=== PATIENT | female | born 1950 | race African-American/Black ===

== ENCOUNTER 2021-11-22 08:51 | Emergency (ER) | payer OTHER, SELFPAY ==
--- NOTE | ~2021-11-22 | CT_ITS ---
EXAMINATION: CT ABDOMEN AND PELVIS WITH CONTRAST CLINICAL INFORMATION: 71-year-old female with mid abdominal pain 1 COMPARISON: None TECHNIQUE: Multidetector volumetric images were obtained from the superior aspect of the liver through the pubic symphysis following administration 85 mL of Omnipaque 350 intravenous contrast. Sagittal and coronal reformatted images were obtained on the technologist's workstation. Oral contrast: No This CT examination was performed using dose optimization techniques as appropriate, variously including the following: *Automated exposure control *Adjustment of mA and/or kV according to patient size (this includes techniques or standardized protocols for targeted exams where dose is matched to indication/reason for exam; i.e. extremities or head) *Use of iterative reconstruction technique DLP: 513 mGy-cm FINDINGS: LUNG BASES: There is atelectasis seen bilaterally in the lung bases right more than left and there is subpleural 3 mm nodule seen on the left on image 6 series 3. LIVER, GALLBLADDER, AND BILIARY TREE: The liver is normal in size, shape, and attenuation. No focal hepatic lesion or biliary ductal dilatation is present. The gallbladder is unremarkable with no evidence of radiopaque gallstones, gallbladder wall thickening, or obvious pericholecystic inflammatory changes. PANCREAS: There is mildly dilated pancreatic duct measured 0.4 cm in the pancreatic head and body there are no masses SPLEEN: Unremarkable. ADRENAL GLANDS: Unremarkable. KIDNEYS AND URETERS: The kidneys are normal in size, shape, and attenuation. No hydronephrosis, hydroureter, or calculi seen. No perinephric stranding. BLADDER: Unremarkable. GASTROINTESTINAL TRACT: The small and large bowel are unremarkable. The appendix is not seen. ABDOMINAL WALL: No significant hernia is appreciated. LYMPH NODES: Normal. VASCULAR: Unremarkable. PELVIC VISCERA: Uterus is not identified likely surgically absent OSSEOUS STRUCTURES: There are multilevel degenerative changes without obvious spinal canal stenosis CT/CT abdomen pelvis w con IMPRESSION: Mildly dilated pancreatic duct. No evidence of cholelithiasis or choledocholithiasis. Impression 4 abdominal pain Fleischner guidelines were followed.
[2021-11-22 09:16] VITALS: BP 125/65; BP 147/90; PULSE 66; PULSE 72; RESP 17; TEMP 36.6; O2SAT 100; BMI 26.9
--- NOTE | 2021-11-22 09:32 | ECG_ITS ---
Test Reason : abdominal pain Blood Pressure : / mmHG Vent. Rate : 065 BPM Atrial Rate : 000 BPM P-R Int : 146 ms QRS Dur : 088 ms QT Int : 478 ms P-R-T Axes : 075 044 086 degrees QTc Int : 497 ms Undetermined rhythm Nonspecific ST and T wave abnormality Prolonged QT Abnormal ECG No previous ECGs available Referred By: Marisa Maria Electronically Signed By:
--- NOTE | 2021-11-22 09:35 | ED.ABDPAIN ---
HPI - Abdominal Pain General Chief Complaint: Abdominal Pain Stated Complaint: epigastric pain x3 days Time Seen by Provider: 11/22/21 08:53 Source: patient and EMS Mode of arrival: EMS Limitations: no limitations History of Present Illness HPI narrative: 71-year-old female with a history of GERD, high cholesterol, memory impairment, COPD, anxiety, depression here with reports of epigastric pain for the last 3 days with nausea. no vomiting, diarrhea, constipation, urinary symptoms, fevers, chills, chest pain, shortness of breath. Patient tells me she is taking both Pepcid and omeprazole for GERD. She recently moved here from [place]. She has not established any providers here in [facility]. She tells me she last saw a GI doctor 1 year ago in [place] and had endoscopy which she tells me was normal. The patient is quite tearful. She tells me she moved here from [address] to move in with her son-in-law. They are planning to move to [place] to move into other family [facility] to help with her granddaughter who is having mental health problems. patient tells me she also lost her son recently in the [facility] setting for her. Multiple stressors which patient tells me are causing her some stress. She denies any suicidal ideations. She has a therapist and a psychiatrist as well Related Data Home Medications Medication Instructions Recorded Confirmed atorvastatin 80 mg tablet 1 tab PO DAILY 11/22/21 donepezil 10 mg tablet 1 tab PO DAILY 11/22/21 duloxetine 30 mg capsule,delayed 1 cap PO DAILY 11/22/21 release famotidine 20 mg tablet 1 tab PO BID 11/22/21 omeprazole 40 mg capsule,delayed 1 cap PO BID 11/22/21 release oxybutynin chloride 15 mg 1 tab PO DAILY 11/22/21 tablet,extended release 24 hr Previous Rx's Medication Instructions Recorded ondansetron 4 mg disintegrating 4 mg PO Q6H PRN #10 tab 11/22/21 tablet Allergies Allergy/AdvReac Type Severity Reaction Status Date / Time aspirin AdvReac Vomiting Verified 11/22/21 09:31 tramadol AdvReac Vomiting Verified 11/22/21 09:31 Review of Systems Review of Systems Yes all other systems are reviewed and are negative Constitutional: Reports no additional constitutional complaints, Denies body ache(s), Denies chills, Denies fever(s), Denies headache(s) and Denies weakness Eyes: Reports no additional eye complaints and Denies change in vision Reports system reviewed and no additional complaints, except as documented, Denies dizziness, Denies headache(s), Denies nasal congestion, Denies nasal discharge and Denies neck pain Cardiovascular: Reports no additional cardiovascular complaints, Denies chest pain, Denies leg edema and Denies dyspnea Respiratory: Reports no additional respiratory complaints, Denies cough and Denies dyspnea Gastrointestinal: Reports no additional gastrointestinal complaints, Reports abdominal pain, Denies diarrhea, Reports nausea and Denies vomiting Genitourinary: Reports no additional female genitourinary complaints and Denies urinary incontinence Musculoskeletal: Reports no additional musculoskeletal complaints, Denies back pain, Denies arthralgias, Denies joint swelling, Denies neck pain, Denies numbness and Denies tingling Skin/Breast: Reports system reviewed and no additional complaints, except as docu and Denies rash Reports system reviewed and no additional complaints, except as documented, Denies dizziness, Denies headache(s), Denies numbness, Denies tingling and Denies weakness [facility] Past Medical History Attestation statement: The following information was validated with the patient. Source: old records reviewed and nursing notes reviewed Social History Social History Alcohol intake: never Patient Tobacco Use Status: Former Tobacco user Smoked in Last 30 Days: Yes Use of substances other than those prescribed or required for medical reasons: Yes Substance Use Type: Marijuana Advance Directives: No Physical Exam ED Vital Signs: Vital Signs - 24 hr 11/22/21 09:16 11/22/21 09:53 11/22/21 11:25 Temperature 97.8 F Pulse Rate 66 71 Respiratory Rate 17 15 16 Blood Pressure 125/65 165/79 H Pulse Oximetry 100 100 11/22/21 15:17 Temperature 98.2 F Pulse Rate 69 Respiratory Rate 17 Blood Pressure 138/72 Pulse Oximetry 99 BMI result Body Mass Index 26.9 Const General: cooperative, healthy appearing, comfortable and no acute distress Orientation/consciousness: patient oriented x3 Limitations: no limitations HENMT Head: Yes normal to inspection Ears: hearing grossly normal bilaterally General nose exam: Normal external nose present Face and sinus: Yes normal facial exam Mouth: Normal oral and palatal mucosa present Teeth and gingiva: dentition normal Throat: Yes posterior oropharynx normal, Yes tonsils normal and Yes uvula midline Eyes General: appearance normal, both eyes and all related structures Pupils: Equal, round and reactive pupils present Neck Neck: Yes normal visual inspection, Yes full ROM, Yes no lymphadenopathy and Yes no meningeal signs Chest Chest palpation & inspection: normal inspection of the chest Resp Effort & Inspection: normal respiratory effort Auscultation: clear to auscultation bilaterally Cardio Rate: regular rate Rhythm: regular rhythm Peripheral pulses: Peripheral pulses 2+ throughout GI Inspection: Yes normal to inspection Palpation (GI): Soft to palpation and Tenderness to palpation present (GI) (epigastric-TTP) General: Yes no CVA tenderness Back/Spine/Pelvis Back: no CVA tenderness Skin General skin exam: no rashes or lesions noted Neuro General: patient oriented x3, moves all extremities, no meningeal signs and Unable to assess gait Cranial nerves: Yes CN's II-XII intact bilaterally, Yes Equal, round and reactive pupils present, Yes Bilaterally intact EOM present, Yes Nystagmus not present, Yes Normal facial strength present and Yes Midline tongue present Cognition (Neuro): normal cognition Gait exam (Neuro): Unable to assess gait Motor exam (neuro): 5/5 motor strength present throughout Sensory Exam: Normal double simultaneous stimulation for sensation Extrem General: Yes normal to inspection Course Course Course Narrative: 71-year-old female here with reports of epigastric pain and nausea for the last 3 days. On exam the patient has epigastric tenderness to palpate. No rebound or guarding. She is quite tearful on exam reports multiple life stressors. She has underlying history of gastric reflux and has been seen by GI in [place]. She last endoscopy 1 year ago. She is on omeprazole and famotidine with continued symptoms. Will check labs, UA, EKG did age. Will provide analgesia, antiemetic and PPI. Re-assess Reevaluation(s) Reevaluation #1: Patient reports continued with tenderness mid abdomen-no rebound or guarding. Nausea improved. will check CT A/P Time: 11:15 Reevaluation #2: CT shows a mildly dilated pancreatic duct. There is no evidence of gallstones. The LFTs are normal. Lipase is normal. Likely incidental finding. Patient can follow up outpatient with her primary care doctor in regards to this. will involve care team due to multiple stressors no reports of depression. No suicidal thoughts. Time: 13:23 Reevaluation #3: patient was seen by care team (gilda). no suicidal thoughts. she has an outpatient therapist and psychiatrist. Plan for additional outpatient resources. Patient tolerating satinder rafael with no additional vomiting episodes. Likely gastritis versus GERD. patient has omeprazole and Pepcid at home. Will give her sublingual Zofran as needed Time: 14:00 MDM - Abdominal Pain MDM Narrative Medical decision making narrative: gastritis, GERD, ACS Medical Records Attestation: I reviewed the patient's medical records. Lab Data Attestation: I reviewed the patient's lab results. Result diagrams: 11/22/21 10:22 11/22/21 10: Labs: Lab Results 11/22/21 11/22/21 11/22/21 Range/Units 10:22 10:22 10:22 WBC 6.7 (4.8-10.8) X10*3/uL RBC 4.90 (4.20-5.50) X10*6/uL Hgb 13.0 (12.0-16.0) g/dl Hct 40.2 (37.0-47.0) % MCV 82.0 (80.0-98.0) fL MCH 26.5 L (27.0-33.0) pg MCHC 32.3 (31.0-35.0) g/dl RDW 13.9 (11.0-16.0) % Plt Count 393 (160-400) X10*3/uL MPV 10.6 (9.4-12.3) fL Immature Gran % (Auto) 0.1 (0.0-0.4) % Neut % (Auto) 57.8 (45-73) % Lymph % (Auto) 30.7 (20-40) % [place] % (Auto) 9.2 (2-11) % Eos % (Auto) 1.2 (0-4) % Baso % (Auto) 1.0 (0-2) % Lymph # (Auto) 2.1 (1.2-4.9) X10*3/uL [place] # (Auto) 0.6 (0.1-1.2) X10*3/uL Eos # (Auto) 0.1 (0.0-0.4) X10*3/uL Baso # (Auto) 0.1 (0.0-0.2) X10*3/uL Abs Immat Gran (auto) 0.01 (0.00-0.03) X10*3/uL Absolute Neuts (auto) 3.9 (2.0-8.3) x10*3/uL Absolute Nucleated RBC 0.000 (0.0-0.012) X10*3/uL Nucleated RBC % (auto) 0.0 (0.0-0.2) /100WBC Sodium 142 (135-145) mmol/L Potassium 4.3 (3.3-5.1) mmol/L Chloride 113 H (96-108) mmol/L Carbon Dioxide 19 L (22-29) mmol/L Anion Gap 14 (12-20) BUN 10 (9-16) mg/dL Creatinine 0.79 (0.5-1.4) mg/dL Estim Creat Clear Calc 50.8 Estimated GFR > 60 Random Glucose 94 (60-115) mg/dL Calcium 9.2 (8.4-10.2) mg/dL Magnesium 1.9 (1.6-2.6) mg/dL Total Bilirubin 0.4 (0.0-1.0) mg/dL Direct Bilirubin 0.2 (0.0-0.5) mg/dL AST 14 (5-31) U/L ALT 8 (0-31) U/L Alkaline Phosphatase 127 H (39-117) U/L Troponin I High Sens 4.3 (<3.5-17.0) ng/L Total Protein 6.6 (6.5-8.0) g/dL Albumin 3.7 (3.5-5.0) g/dL Lipase 13 (8-78) U/L Urine Color Urine Appearance Urine pH (5.0-8.0) Ur Specific [place] (1.005-1.025) Urine Protein (NEG-TRACE) MG/DL Urine Glucose (UA) (NEG) MG/DL Urine Ketones (NEG) MG/DL Urine Blood (NEG) Urine Nitrite (NEG) Ur Leukocyte Esterase (NEG) COVID-19 (TOR[facility]Y) (Negative) COVID-19 Clin Com 11/22/21 11/22/21 Range/Units 10:22 10:22 WBC (4.8-10.8) X10*3/uL RBC (4.20-5.50) X10*6/uL Hgb (12.0-16.0) g/dl Hct (37.0-47.0) % MCV (80.0-98.0) fL MCH (27.0-33.0) pg MCHC (31.0-35.0) g/dl RDW (11.0-16.0) % Plt Count (160-400) X10*3/uL MPV (9.4-12.3) fL Immature Gran % (Auto) (0.0-0.4) % Neut % (Auto) (45-73) % Lymph % (Auto) (20-40) % [place] % (Auto) (2-11) % Eos % (Auto) (0-4) % Baso % (Auto) (0-2) % Lymph # (Auto) (1.2-4.9) X10*3/uL [place] # (Auto) (0.1-1.2) X10*3/uL Eos # (Auto) (0.0-0.4) X10*3/uL Baso # (Auto) (0.0-0.2) X10*3/uL Abs Immat Gran (auto) (0.00-0.03) X10*3/uL Absolute Neuts (auto) (2.0-8.3) x10*3/uL Absolute Nucleated RBC (0.0-0.012) X10*3/uL Nucleated RBC % (auto) (0.0-0.2) /100WBC Sodium (135-145) mmol/L Potassium (3.3-5.1) mmol/L Chloride (96-108) mmol/L Carbon Dioxide (22-29) mmol/L Anion Gap (12-20) BUN (9-16) mg/dL Creatinine (0.5-1.4) mg/dL Estim Creat Clear Calc Estimated GFR Random Glucose (60-115) mg/dL Calcium (8.4-10.2) mg/dL Magnesium (1.6-2.6) mg/dL Total Bilirubin (0.0-1.0) mg/dL Direct Bilirubin (0.0-0.5) mg/dL AST (5-31) U/L ALT (0-31) U/L Alkaline Phosphatase (39-117) U/L Troponin I High Sens (<3.5-17.0) ng/L Total Protein (6.5-8.0) g/dL Albumin (3.5-5.0) g/dL Lipase (8-78) U/L Urine Color STRAW Urine Appearance CLEAR Urine pH 8.0 (5.0-8.0) Ur Specific [place] 1.010 (1.005-1.025) Urine Protein NEG (NEG-TRACE) MG/DL Urine Glucose (UA) NEG (NEG) MG/DL Urine Ketones NEG (NEG) MG/DL Urine Blood NEG (NEG) Urine Nitrite NEG (NEG) Ur Leukocyte Esterase NEG (NEG) COVID-19 (TORREY) Negative (Negative) COVID-19 Clin Com See Note Imaging Data CT scan - abdomen: Attestation: I personally reviewed and interpreted this imaging study as follows: Radiologist's impression: FINDINGS: LUNG BASES: There is atelectasis seen bilaterally in the lung bases right more than left and there is subpleural 3 mm nodule seen on the left on image 6 series 3.? LIVER, GALLBLADDER, AND BILIARY TREE: The liver is normal in size, shape, and attenuation. No focal hepatic lesion or biliary ductal dilatation is present. The gallbladder is unremarkable with no evidence of radiopaque gallstones, gallbladder wall thickening, or obvious pericholecystic inflammatory changes.? PANCREAS: There is mildly dilated pancreatic duct measured 0.4 cm in the pancreatic head and body there are no masses? SPLEEN: Unremarkable.? ADRENAL GLANDS: Unremarkable.? KIDNEYS AND URETERS: The kidneys are normal in size, shape, and attenuation. No hydronephrosis, hydroureter, or calculi seen. No perinephric stranding. ? BLADDER: Unremarkable.? GASTROINTESTINAL TRACT: The small and large bowel are unremarkable. The appendix is not seen.? ABDOMINAL WALL: No significant hernia is appreciated.? LYMPH NODES: Normal. VASCULAR: Unremarkable. PELVIC VISCERA: Uterus is not identified likely surgically absent? OSSEOUS STRUCTURES: There are multilevel degenerative changes without obvious spinal canal stenosis? CT/CT abdomen pelvis w con IMPRESSION: Mildly dilated pancreatic duct. No evidence of cholelithiasis or choledocholithiasis. ? Impression 4 abdominal pain? ? Fleischner guidelines were followed. ECG Data Attestation: I personally reviewed and interpreted this ECG as follows: ECG interpretation date: 11/22/21 ECG interpretation time: 09:56 Interpretation: sinus bradycardia with rate 55, normal MD, normal QRS, normal QT Discharge Plan Discharge Clinical Impression: GERD (gastroesophageal reflux disease), Depression Patient Disposition: Home, Self-Care Instructions: Depression (DC), Gastroesophageal Reflux Disease (DC) Additional Instructions: very bland diet then advance diet as tolerated you were given referrals for outpatient grief counselor your CT scan shows a dilated pancreatic duct. You can follow-up with your primary care doctor in regards to this. Prescriptions: New ondansetron 4 mg tablet,disintegrating 4 mg PO Q6H PRN (Reason: nausea and vomiting) Qty: 10 0RF No Action atorvastatin 80 mg tablet 1 tab PO DAILY 0RF oxybutynin chloride 15 mg tablet extended release 24 hr 1 tab PO DAILY 0RF donepezil 10 mg tablet 1 tab PO DAILY 0RF omeprazole 40 mg capsule,delayed release(DR/EC) 1 cap PO BID 0RF famotidine 20 mg tablet 1 tab PO BID 0RF duloxetine 30 mg capsule,delayed release(DR/EC) 1 cap PO DAILY 0RF Referrals: Physician,Unknown J [Primary Care Provider] -
[2021-11-22 09:53] VITALS: RESP 15
[2021-11-22] MEDS: 0.9 % Sodium Chloride 1,000 ML 999 ML IV (09:53)
[2021-11-22] MEDS: Famotidine/PF 20 MG/2 ML VIAL IVPUSH (09:53)
[2021-11-22] MEDS: ondansetron HCL 4 MG/2 ML VIAL IVPUSH (09:53)
[2021-11-22] MEDS: Morphine Sulfate 4 MG/ML CARTRIDGE IVPUSH (09:53)
[2021-11-22 10:30] LABS: MANUAL DIFF FLAG NO
[2021-11-22 10:36] LABS: Basophils Absolute Auto 0.1 X10*3/uL (0.0-0.2); Eosinophils Absolute Auto 0.1 X10*3/uL (0.0-0.4); Eosinophils Percent Auto 1.2 % (0-4); Hematocrit 40.2 % (37.0-47.0); Imm Gran Abs Auto 0.01 X10*3/uL (0.00-0.03); Imm Gran Pct Auto 0.1 % (0.0-0.4); Lymphocytes Absolute Auto 2.1 X10*3/uL (1.2-4.9); Lymphocytes Percent Auto 30.7 % (20-40); Mean Corpuscular HGB Conc 32.3 g/dl (31.0-35.0); Mean Corpuscular Hemoglobin 26.5 pg (27.0-33.0); Mean Platelet Volume 10.6 fL (9.4-12.3); Monocytes Absolute Auto 0.6 X10*3/uL (0.1-1.2); Monocytes Percent Auto 9.2 % (2-11); Neutrophils Absolute Auto 3.9 x10*3/uL (2.0-8.3); Neutrophils Percent Auto 57.8 % (45-73); Platelet Count 393 X10*3/uL (160-400); Red Cell Distribution Width 13.9 % (11.0-16.0); White Blood Count 6.7 X10*3/uL (4.8-10.8)
[2021-11-22 10:38] LABS: Appearance Urine CLEAR; Color Urine STRAW; Glucose Urine UA NEG (NEG); Leukocyte Esterase Urine NEG (NEG); Nitrite Urine NEG (NEG); Urine Blood NEG (NEG); Urine Ketones NEG (NEG); Urine Protein NEG (NEG-TRACE)
[2021-11-22 10:56] LABS: Alanine Aminotransferase 8 U/L (0-31); Albumin Level 3.7 g/dL (3.5-5.0); Alkaline Phosphatase 127 U/L (39-117); Anion Gap 14 (12-20); Aspartate Amino Transferase 14 U/L (5-31); Bilirubin Direct 0.2 mg/dL (0.0-0.5); Bilirubin Total 0.4 mg/dL (0.0-1.0); Blood Urea Nitrogen 10 mg/dL (9-16); Calcium 9.2 mg/dL (8.4-10.2); Carbon Dioxide 19 mmol/L (22-29); Chloride 113 mmol/L (96-108); Creatinine Clr Calc Pharmacy 50.8; Estimated Glomerular Filt Rate > 60; Glucose Random 94 mg/dL (60-115); Lipase 13 U/L (8-78); Magnesium 1.9 mg/dL (1.6-2.6); Potassium 4.3 mmol/L (3.3-5.1); Sodium 142 mmol/L (135-145); Total Protein 6.6 g/dL (6.5-8.0)
[2021-11-22 11:02] LABS: COVID-19 Test Negative (Negative); Troponin-I High Sensitivity 4.3 ng/L (<3.5-17.0)
[2021-11-22 11:25] VITALS: BP 165/79; PULSE 71; RESP 16; O2SAT 100
[2021-11-22] MEDS: iohexoL 350 MG/ML 100 ML INFUS..BTL IV (11:56)
--- NOTE | 2021-11-22 13:00 | PC.NURSE ---
Seen by CARE team
[2021-11-22] MEDS: Magnesium Hydrox/Alum Hydrox 30 ML ORAL.SUSP PO (13:31)
[2021-11-22] MEDS: Lidocaine HCl Viscous 2 % 15 ML SOLUTION MUCOUS MEM (13:31)
--- NOTE | 2021-11-22 14:12 | MHC.CARE ---
CARE Team meets with pt at the request of the ED provider for a consult.? Pt reports that she lives with her son in law.? She is from [place], but was here as her son ( to her son in law) was sick with cancer.? Her son recently approximately a year ago.? She has since been experiencing depression and recently bouts of crying, prior to her son?s passing, she reports never experiencing depression. She reports that she has supports in the form of a therapist and psychiatrist.? She stated that her therapy appointments have been helpful.? Pt will be returning home to [place] in March and will remain in this area until then. CARE Team will refer pt to Zelda Jameson who specializes in the Geriatric population for loss and grieving counseling and groups.
[2021-11-22 15:17] VITALS: BP 138/72; PULSE 69; RESP 17; TEMP 36.8; O2SAT 99
[2021-11-22 16:29] VITALS: BP 115/68; PULSE 53; RESP 18; O2SAT 100
== END 2021-11-22 16:35 | disposition home or self-care (01) ==
PROVIDERS: Nurse Practitioner Family; Emergency Provider Emergency Medicine
DX: K21.9 Gastro-esophageal reflux disease without esophagitis (principal); R10.13 Epigastric pain; J44.9 Chronic obstructive pulmonary disease, unspecified; F33.1 Major depressive disorder, recurrent, moderate; Z20.822 Contact with and (suspected) exposure to COVID-19; Z87.891 Personal history of nicotine dependence; Z79.899 Other long term (current) drug therapy
CPT/HCPCS: 36415; 74177; 80048; 80076; 81003; 83690; 83735; 84484; 85025; 87635; 93005; 96361; 96374; 96375; 99284; J2270; J2405; Q9967

== ENCOUNTER 2021-12-08 18:39 | Emergency (ER) | payer OTHER, SELFPAY ==
[2021-12-08] VITALS (9 sets, daily range): BP systolic 123–234; BP diastolic 58–107; PULSE 76–118; RESP 20–33; O2SAT 95–99; BMI 25.4
--- NOTE | ~2021-12-08 | CT_ITS ---
EXAMINATION: CT HEAD WITHOUT CONTRAST (STROKE PROTOCOL) CLINICAL INFORMATION: Stroke protocol. Right arm weak COMPARISON: None TECHNIQUE: Contiguous axial imaging was performed from the skull base to vertex without intravenous administration of contrast. This CT examination was performed using dose optimization techniques as appropriate, variously including the following: *Automated exposure control *Adjustment of mA and/or kV according to patient size (this includes techniques or standardized protocols for targeted exams where dose is matched to indication/reason for exam; i.e. extremities or head) *Use of iterative reconstruction technique DLP: 623 mGy-cm FINDINGS: There is hyperdense hematoma seen in the high left frontoparietal white matter. This measures up to 2.3 cm in maximal diameter with associated surrounding edema. I do not appreciate any significant shift of midline structures. There is extensive periventricular white matter hypodensities bilaterally suggesting a component of likely chronic periventricular white matter changes, possibly age-related as well. The ventricles are normal in size. There is no hydrocephalus, or midline shift effect. There is no acute infarct or mass lesion. Chronic encephalomalacia in the right basal ganglia suggesting a small chronic right basal ganglia infarct noted as well The calvarium appears intact. There is no pneumocephalus or orbital emphysema. The visualized sinuses and middle ears and mastoid air cells show no significant mucosal thickening. There are no air-fluid levels. CT/CT head for stroke IMPRESSION: Hyperdense hematoma in the high left frontoparietal white matter with associated surrounding edema. I do not appreciate any significant shift of midline structures at this time. No hydrocephalus. Periventricular white matter changes are seen likely age-related. Probable chronic right basal ganglia infarct noted as well. This critical result was discussed with Dr. Gamble at 12/08/2021 7:08 PM and it was ascertained that the content and urgency of the report was understood at the time of direct communication.
--- NOTE | ~2021-12-08 | XR_ITS ---
EXAMINATION: PORTABLE CHEST 1 VIEW CLINICAL INFORMATION: cva . COMPARISON: No recent pertinent prior studies are available for comparison. TECHNIQUE: Portable frontal view of the chest was obtained. FINDINGS: The lungs are well expanded. Mild chronic appearing reticular markings seen but no superimposed focal infiltrate, effusion, edema, or pneumothorax. Cardiac and mediastinal silhouettes are within normal limits for size with vascular calcification in aorta. Degenerative changes in the spine and shoulders. No acute bony abnormality seen. XR/XR chest 1V IMPRESSION: Chronic appearing changes but no acute airspace disease
--- NOTE | 2021-12-08 18:42 | ECG_ITS ---
Test Reason : STROKE ALERT Blood Pressure : / mmHG Vent. Rate : 068 BPM Atrial Rate : 068 BPM P-R Int : 136 ms QRS Dur : 074 ms QT Int : 440 ms P-R-T Axes : 077 054 081 degrees QTc Int : 467 ms Normal sinus rhythm Nonspecific ST abnormality Abnormal ECG When compared with ECG of 22-NOV-2021 09:56, No significant change was found Referred By: Drew Gamble Electronically Signed By:Guille Cazares
[2021-12-08 19:03] LABS: Prothrombin Time Whole Bld POC 12.6 sec (11.1-13.5); ~PT, ~INR - Anti Coag Clinic 1.1 (0.9-1.1)
[2021-12-08 19:14] LABS: Glucose, Whole Blood 92 mg/dL (60-115)
[2021-12-08 19:16] LABS: MANUAL DIFF FLAG NO
--- NOTE | 2021-12-08 19:16 | PC.NURSE ---
call out to [facility] transfer [phone] @[phone] spoke to cheryl regarding transfer
[2021-12-08 19:18] LABS: Basophils Percent Auto 0.5 % (0-2); Eosinophils Absolute Auto 0.1 X10*3/uL (0.0-0.4); Eosinophils Percent Auto 1.3 % (0-4); Hematocrit 41.4 % (37.0-47.0); Hemoglobin 13.6 g/dl (12.0-16.0); Imm Gran Abs Auto 0.03 X10*3/uL (0.00-0.03); Imm Gran Pct Auto 0.4 % (0.0-0.4); Lymphocytes Absolute Auto 3.1 X10*3/uL (1.2-4.9); Lymphocytes Percent Auto 35.9 % (20-40); Mean Corpuscular HGB Conc 32.9 g/dl (31.0-35.0); Mean Corpuscular Hemoglobin 26.4 pg (27.0-33.0); Mean Corpuscular Volume 80.4 fL (80.0-98.0); Mean Platelet Volume 10.8 fL (9.4-12.3); Monocytes Absolute Auto 0.7 X10*3/uL (0.1-1.2); Monocytes Percent Auto 8.5 % (2-11); Neutrophils Absolute Auto 4.6 x10*3/uL (2.0-8.3); Neutrophils Percent Auto 53.4 % (45-73); Platelet Count 460 X10*3/uL (160-400); Red Blood Count 5.15 X10*6/uL (4.20-5.50); Red Cell Distribution Width 14.2 % (11.0-16.0); White Blood Count 8.6 X10*3/uL (4.8-10.8)
--- NOTE | 2021-12-08 19:18 | ED_ITS ---
HPI - Neuro Symptoms/Deficit General Chief Complaint: Stroke Stated Complaint: stroke Time Seen by Provider: 12/08/21 18:42 Source: patient and EMS Limitations: no limitations History of Present Illness HPI Narrative: This is a 71-year-old female who had sudden onset of a headache and weakness in her right arm and right leg, to the extent that she could not move her right arm and right leg. She called EMS and they noted that she was hypertensive, did clearly have weakness of her right arm right leg. Patient complains of moderate headache. She denies any history of hypertension. She denies any facial weakness or problems swallowing, speaking. She denies numbness to her face, arms or legs. She denies any chest pain or shortness of breath. Related Data Home Medications Medication Instructions Recorded Confirmed atorvastatin 80 mg tablet 1 tab PO DAILY 11/22/21 donepezil 10 mg tablet 1 tab PO DAILY 11/22/21 duloxetine 30 mg capsule,delayed 1 cap PO DAILY 11/22/21 release famotidine 20 mg tablet 1 tab PO BID 11/22/21 omeprazole 40 mg capsule,delayed 1 cap PO BID 11/22/21 release oxybutynin chloride 15 mg 1 tab PO DAILY 11/22/21 tablet,extended release 24 hr Previous Rx's Medication Instructions Recorded ondansetron 4 mg disintegrating 4 mg PO Q6H PRN #10 tab 11/22/21 tablet Allergies Allergy/AdvReac Type Severity Reaction Status Date / Time aspirin AdvReac Vomiting Verified 11/22/21 09:31 tramadol AdvReac Vomiting Verified 11/22/21 09:31 Review of Systems Constitutional: Constitutional: Reports no additional constitutional complaints and Reports headache(s) Eyes: Eyes: Reports no additional eye complaints ENT: Reports system reviewed and no additional complaints, except as documented and Reports headache(s) Cardiovascular: Cardiovascular: Reports no additional cardiovascular complaints Respiratory: Respiratory: Reports no additional respiratory complaints Gastrointestinal: Gastrointestinal: Reports nausea Musculoskeletal: Musculoskeletal: Reports no additional musculoskeletal complaints Neurologic: Reports headache(s) and Reports focal weakness PMFSH Social History Social History Alcohol intake: never Patient Tobacco Use Status: Former Tobacco user Substance Use Type: Marijuana Advance Directives: No Advance Directives Information Provided: No Physical Exam Vital Signs: Vital Signs: Last Vital Signs Pulse 85 12/08/21 20:55 Resp 23 H 12/08/21 20:55 BP 123/61 12/08/21 20:55 Pulse Ox 97 12/08/21 20:55 BMI result Body Mass Index 25.4 Const: Other: Patient initially speaking normally,, somewhat animated/anxious General: cooperative Orientation/consciousness: oriented to person and patient oriented x3 HEENT: Head: Yes normal to inspection General nose exam: Normal external nose present Mouth: Normal oral and palatal mucosa present Eyes: General: appearance normal, both eyes and all related structures Pupils: Equal, round and reactive pupils present Resp: Effort & Inspection: normal respiratory effort Auscultation: clear to auscultation bilaterally Cardio: Rate: regular rate Rhythm: regular rhythm Heart sounds: S1 normal heart sound present, S2 normal heart sound present, no gallops, no murmurs and no rubs GI: Palpation (GI): Soft to palpation and nontender Skin: Other: Diaphoretic Neuro: Other: Flaccid paralysis to right arm and right leg 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 Sensation to light touch grossly intact General: oriented to person, patient oriented x3, No moves all extremities and CN's II-XI intact bilaterally Cranial nerves: Yes Equal, round and reactive pupils present Cognition (Neuro): normal cognition Course Course Course Narrative: Patient's CT showed intraparenchymal bleed, causing CVA. Card if he was ordered as an IV drip for this patient since she was significantly hypertensive. I spoke with transfer center at [facility] initially spoke with the neurologist Dr. Thurman, who accepted the patient for admission to the medical service, was connected to the hospitalist however the patient's condition had worsened with decreased responsiveness, so I then spoke with the ICU physician, Dr. Weston, who accepted the patient for transfer to the ICU. The patient was initially alert and talkative, normally interactive but subsequently became less responsive, not following commands. She did have a gag reflex. She was reassessed prior to transfer and to have a gag reflex. I spoke with patient's daughter, who stated the patient should be full code. Critical care time for this life-threatening illness exclusive of all other billable procedures was approximately 55 minutes including initial evaluation of the patient, ordering tests, x-ray interpretation, EKG interpretation, medical consultation, documentation, reevaluation. MDM - Neuro Symptoms/Deficit Lab Data Attestation: I reviewed the patient's lab results. Result diagrams: 12/08/21 19:12 12/08/21 19:37 Labs: Lab Results 12/08/21 12/08/21 12/08/21 Range/Units 18:59 19:10 19:12 WBC 8.6 (4.8-10.8) X10*3/uL RBC 5.15 (4.20-5.50) X10*6/uL Hgb 13.6 (12.0-16.0) g/dl Hct 41.4 (37.0-47.0) % MCV 80.4 (80.0-98.0) fL MCH 26.4 L (27.0-33.0) pg MCHC 32.9 (31.0-35.0) g/dl RDW 14.2 (11.0-16.0) % Plt Count 460 H (160-400) X10*3/uL MPV 10.8 (9.4-12.3) fL Immature Gran % (Auto) 0.4 (0.0-0.4) % Neut % (Auto) 53.4 (45-73) % Lymph % (Auto) 35.9 (20-40) % [place] % (Auto) 8.5 (2-11) % Eos % (Auto) 1.3 (0-4) % Baso % (Auto) 0.5 (0-2) % Lymph # (Auto) 3.1 (1.2-4.9) X10*3/uL [place] # (Auto) 0.7 (0.1-1.2) X10*3/uL Eos # (Auto) 0.1 (0.0-0.4) X10*3/uL Baso # (Auto) 0.0 (0.0-0.2) X10*3/uL Abs Immat Gran (auto) 0.03 (0.00-0.03) X10*3/uL Absolute Neuts (auto) 4.6 (2.0-8.3) x10*3/uL Absolute Nucleated RBC 0.000 (0.0-0.012) X10*3/uL Nucleated RBC % (auto) 0.0 (0.0-0.2) /100WBC PT (9.9-13.0) SEC Whole Blood PT 12.6 (11.1-13.5) sec INR (0.9-1.1) Whole Blood INR 1.1 (0.9-1.1) APTT (24.1-38.0) SEC Sodium (135-145) mmol/L Potassium (3.3-5.1) mmol/L Chloride (96-108) mmol/L Carbon Dioxide (22-29) mmol/L Anion Gap (12-20) BUN (9-16) mg/dL Creatinine (0.5-1.4) mg/dL Estim Creat Clear Calc Estimated GFR POC Glucose 92 (60-115) mg/dL Random Glucose (60-115) mg/dL Calcium (8.4-10.2) mg/dL Total Creatine Kinase (26-140) U/L Troponin I High Sens (<3.5-17.0) ng/L COVID-19 ([facility]) (Negative) COVID-19 Clin Com 12/08/21 12/08/21 12/08/21 Range/Units 19:12 19:12 19:31 WBC (4.8-10.8) X10*3/uL RBC (4.20-5.50) X10*6/uL Hgb (12.0-16.0) g/dl Hct (37.0-47.0) % MCV (80.0-98.0) fL MCH (27.0-33.0) pg MCHC (31.0-35.0) g/dl RDW (11.0-16.0) % Plt Count (160-400) X10*3/uL MPV (9.4-12.3) fL Immature Gran % (Auto) (0.0-0.4) % Neut % (Auto) (45-73) % Lymph % (Auto) (20-40) % [place] % (Auto) (2-11) % Eos % (Auto) (0-4) % Baso % (Auto) (0-2) % Lymph # (Auto) (1.2-4.9) X10*3/uL [place] # (Auto) (0.1-1.2) X10*3/uL Eos # (Auto) (0.0-0.4) X10*3/uL Baso # (Auto) (0.0-0.2) X10*3/uL Abs Immat Gran (auto) (0.00-0.03) X10*3/uL Absolute Neuts (auto) (2.0-8.3) x10*3/uL Absolute Nucleated RBC (0.0-0.012) X10*3/uL Nucleated RBC % (auto) (0.0-0.2) /100WBC PT 12.0 (9.9-13.0) SEC Whole Blood PT (11.1-13.5) sec INR 1.1 (0.9-1.1) Whole Blood INR (0.9-1.1) APTT 34.4 (24.1-38.0) SEC Sodium (135-145) mmol/L Potassium (3.3-5.1) mmol/L Chloride (96-108) mmol/L Carbon Dioxide (22-29) mmol/L Anion Gap (12-20) BUN (9-16) mg/dL Creatinine (0.5-1.4) mg/dL Estim Creat Clear Calc Estimated GFR POC Glucose (60-115) mg/dL Random Glucose (60-115) mg/dL Calcium (8.4-10.2) mg/dL Total Creatine Kinase (26-140) U/L Troponin I High Sens < 3.5 (<3.5-17.0) ng/L COVID-19 ([facility]) Negative (Negative) COVID-19 Clin Com See Note 12/08/21 Range/Units 19:37 WBC (4.8-10.8) X10*3/uL RBC (4.20-5.50) X10*6/uL Hgb (12.0-16.0) g/dl Hct (37.0-47.0) % MCV (80.0-98.0) fL MCH (27.0-33.0) pg MCHC (31.0-35.0) g/dl RDW (11.0-16.0) % Plt Count (160-400) X10*3/uL MPV (9.4-12.3) fL Immature Gran % (Auto) (0.0-0.4) % Neut % (Auto) (45-73) % Lymph % (Auto) (20-40) % [place] % (Auto) (2-11) % Eos % (Auto) (0-4) % Baso % (Auto) (0-2) % Lymph # (Auto) (1.2-4.9) X10*3/uL [place] # (Auto) (0.1-1.2) X10*3/uL Eos # (Auto) (0.0-0.4) X10*3/uL Baso # (Auto) (0.0-0.2) X10*3/uL Abs Immat Gran (auto) (0.00-0.03) X10*3/uL Absolute Neuts (auto) (2.0-8.3) x10*3/uL Absolute Nucleated RBC (0.0-0.012) X10*3/uL Nucleated RBC % (auto) (0.0-0.2) /100WBC PT (9.9-13.0) SEC Whole Blood PT (11.1-13.5) sec INR (0.9-1.1) Whole Blood INR (0.9-1.1) APTT (24.1-38.0) SEC Sodium 142 (135-145) mmol/L Potassium 3.7 (3.3-5.1) mmol/L Chloride 111 H (96-108) mmol/L Carbon Dioxide 19 L (22-29) mmol/L Anion Gap 16 (12-20) BUN 10 (9-16) mg/dL Creatinine 0.80 (0.5-1.4) mg/dL Estim Creat Clear Calc 49.0 Estimated GFR > 60 POC Glucose (60-115) mg/dL Random Glucose 103 (60-115) mg/dL Calcium 9.4 (8.4-10.2) mg/dL Total Creatine Kinase 59 (26-140) U/L Troponin I High Sens (<3.5-17.0) ng/L COVID-19 ([facility]) (Negative) COVID-19 Clin Com Imaging Data CT scan - head: Radiologist's impression: IMPRESSION: Hyperdense hematoma in the high left frontoparietal white matter with associated surrounding edema. I do not appreciate any significant shift of midline structures at this time. No hydrocephalus. ? Periventricular white matter changes are seen likely age-related. Probable chronic right basal ganglia infarct noted as well. ? This critical result was discussed with Dr. Gamble at 12/08/2021 7:08 PM and it was ascertained that the content and urgency of the report was understood at the time of direct communication. ECG Data Attestation: I personally reviewed and interpreted this ECG as follows: ECG interpretation date: 12/08/21 ECG interpretation time: 19:22 Interpretation: Sinus rhythm with a rate of 68. ST-elevation in lead V1 and V2 Discharge Plan Discharge Clinical Impression: Hemorrhagic stroke, Hypertensive emergency Patient Disposition: [facility] Transfer Details: [facility] Prescriptions: No Action atorvastatin 80 mg tablet 1 tab PO DAILY 0RF oxybutynin chloride 15 mg tablet extended release 24 hr 1 tab PO DAILY 0RF donepezil 10 mg tablet 1 tab PO DAILY 0RF omeprazole 40 mg capsule,delayed release(DR/EC) 1 cap PO BID 0RF famotidine 20 mg tablet 1 tab PO BID 0RF duloxetine 30 mg capsule,delayed release(DR/EC) 1 cap PO DAILY 0RF ondansetron 4 mg tablet,disintegrating 4 mg PO Q6H PRN (Reason: nausea and vomiting) Qty: 10 0RF
[2021-12-08 19:24] LABS: INTERNATIONAL NORM RATIO 1.1 (0.9-1.1)
[2021-12-08 19:27] LABS: Partial Thromboplastin Time 34.4 SEC (24.1-38.0)
[2021-12-08 19:30] LABS: Stroke Lab Use COMPLETE
[2021-12-08 19:37] LABS: Troponin-I High Sensitivity < 3.5 ng/L (<3.5-17.0)
[2021-12-08] MEDS: ondansetron HCL 4 MG/2 ML VIAL IVPUSH (19:40)
[2021-12-08] MEDS: HYDROmorphone HCl 0.5 MG/0.5 ML SYRINGE IVPUSH (19:40)
--- NOTE | 2021-12-08 19:49 | PC.NURSE ---
Patient appear diaphoretic. Has intentional movement on the left side. No intentional movement on right side. Gazes to the left.
[2021-12-08 19:59] LABS: COVID-19 Test Negative (Negative)
[2021-12-08 19:59] LABS: Anion Gap 16 (12-20); Blood Urea Nitrogen 10 mg/dL (9-16); Calcium 9.4 mg/dL (8.4-10.2); Carbon Dioxide 19 mmol/L (22-29); Chloride 111 mmol/L (96-108); Estimated Glomerular Filt Rate > 60; Glucose Random 103 mg/dL (60-115); Potassium 3.7 mmol/L (3.3-5.1); Sodium 142 mmol/L (135-145)
[2021-12-08] MEDS: niCARdipine HCL 25 MG in 0.9 % Sodium Chloride 250 ML 52 MG IVCONT (20:01)
--- NOTE | 2021-12-08 20:06 | PC.NURSE ---
Patient change in mental status from arrival. Upon arrival patient able to follow commands and was alert and oriented. At this time patient unable to follow commands and arousable to painful stimuli without any signs of orientation. MD made aware of patients current status.
--- NOTE | 2021-12-08 20:30 | ECG_ITS ---
Test Reason : REPEAT Blood Pressure : / mmHG Vent. Rate : 104 BPM Atrial Rate : 104 BPM P-R Int : 136 ms QRS Dur : 092 ms QT Int : 370 ms P-R-T Axes : 076 054 061 degrees QTc Int : 486 ms Sinus tachycardia Left ventricular hypertrophy with repolarization abnormality ( Sokolow-Rivero ) Abnormal ECG When compared with ECG of 08-DEC-2021 19:07, Vent. rate has increased BY [address] no longer elevated in Inferior leads T wave inversion now evident in Inferior leads T wave inversion now evident in Anterior leads Referred By: Drew Gamble Electronically Signed By:LEANDRA PATTERSON MD
--- NOTE | 2021-12-08 20:42 | PC.NURSE ---
BED ASSIGNMENT [facility] ROOM 213 NURSE TO NURSE [phone] IS ACCEPTING
--- NOTE | 2021-12-08 20:58 | PC.NURSE ---
Consulted MD about pressure. Instructed to leave drip nicardipine drip at 7.5 mg/hr
--- NOTE | 2021-12-08 21:21 | PC.NURSE ---
Called Nurse to Nurse report to [facility]. EMS arrival at 2099, PT on stretcher at 2113, stretcher out of room at 2118.
--- NOTE | 2021-12-09 09:35 | MHC.STROKE ---
12/08/21 EMS PRE-NOTIFIED GARCIA, HTN, NO STROKE ALERT. ARRIVED AT 1839. SEEN BY PROVIDER, STROKE PROTOCOL ACTIVATED. STAT CT HEAD AT 1852, + HEMORRHAGIC STROKE. PREPARING FOR TRANSFER TO [facility], SEE PROVIDER NOTE, HTN AND BEING TREATED, PATIENT ALERT AND ORIENTED, NIHSS = 8 RIGHT HEMIPARESIS. KEPT NPO.
== END 2021-12-08 21:24 | disposition short-term general hospital (02) ==
PROVIDERS: Emergency Provider Emergency Medicine
DX: I62.9 Nontraumatic intracranial hemorrhage, unspecified (principal); I16.1 Hypertensive emergency; Z20.822 Contact with and (suspected) exposure to COVID-19
CPT/HCPCS: 36415; 70450; 71045; 80048; 82550; 82947; 84484; 85025; 85610; 85730; 87635; 93005; 96365; 96366; 96375; 99285; J1170; J2405

== ENCOUNTER 2022-03-07 13:59 | Emergency (ER) | payer OTHER, SELFPAY ==
--- NOTE | ~2022-03-07 | XR_ITS ---
EXAMINATION: XR ABDOMEN KUB CLINICAL INDICATION: G-tube replacement with Gastrografin. COMPARISON: Chest radiograph 12/08/2021. TECHNIQUE: AP view of the abdomen. FINDINGS: The tip and balloon of the G-tube are visualized projecting over the mid upper abdomen. Contrast opacifies the stomach, duodenum and proximal jejunum. Nonobstructive bowel gas pattern. Large stool content in the rectum. XR/XR KUB IMPRESSION: Appropriate positioning of gastrostomy tube with intraluminal contrast opacification of the stomach and proximal small bowel.
[2022-03-07 14:14] VITALS: BP 134/59; PULSE 71; O2SAT 99; BMI 24.7
--- NOTE | 2022-03-07 14:38 | ED.GENADULT ---
HPI - General Adult General Chief complaint: General Medical Stated complaint: Clogged G tube Time Seen by Provider: 03/07/22 14:37 Source: EMS Mode of arrival: EMS Limitations: other (nonverbal) History of Present Illness HPI narrative: Patient with history of CVA , nonverbal G-tube placement came from alf as G-tube was clogged and not working no other complaint Related Data Home Medications Medication Instructions Recorded Confirmed atorvastatin 80 mg tablet 1 tab PO DAILY 11/22/21 donepezil 10 mg tablet 1 tab PO DAILY 11/22/21 duloxetine 30 mg capsule,delayed 1 cap PO DAILY 11/22/21 release famotidine 20 mg tablet 1 tab PO BID 11/22/21 omeprazole 40 mg capsule,delayed 1 cap PO BID 11/22/21 release oxybutynin chloride 15 mg 1 tab PO DAILY 11/22/21 tablet,extended release 24 hr Previous Rx's Medication Instructions Recorded ondansetron 4 mg disintegrating 4 mg PO Q6H PRN nausea and 11/22/21 tablet vomiting #10 tabs Allergies Allergy/AdvReac Type Severity Reaction Status Date / Time aspirin AdvReac Vomiting Verified 11/22/21 09:31 tramadol AdvReac Vomiting Verified 11/22/21 09:31 Review of Systems Review of Systems: Yes all other systems are reviewed and are negative PMFSH Social History Social History Alcohol intake: never Patient Tobacco Use Status: Former Tobacco user Substance Use Type: Marijuana Advance Directives: No Advance Directives Information Provided: No Physical Exam ED Vital Signs: Vital Signs - 24 hr 03/07/22 15:38 Temperature 97.7 F Pulse Rate 62 Respiratory Rate 22 H Blood Pressure 140/88 H Pulse Oximetry 97 Oxygen Delivery Method Room Air BMI result Body Mass Index 24.7 Appearance: Alert. Nonverbal. No acute distress. Eyes: PERRLA, ENT: Pharynx normal. Oral Mucosa moist Neck: Normal inspection. Neck supple. CVS: Normal heart rate and rhythm. Pulses normal. Respiratory: No respiratory distress. Equal air entry bilateral, no wheezing/rales/rhonchi Abdomen: Soft G-tube in place clogged, Bowel sounds are present, Skin: Skin warm and dry. Normal skin color. Normal skin turgor. Extremities: No lower extremity edema. No calf tenderness Neuro: Alert right-sided hemiparesis Procedures Feeding Tube Replacement Type of Tube: gastrostomy Insertion Site Prior to Procedure: clean Tube Used for Reinsertion: other (CHERIE gastrostomy feed tube) Slovenian Tube Size (F): 20 Balloon size (mL): 10 Verification of Placement: auscultation and KUB Tube Secured by: tape/dressing Patient Tolerated Procedure: well Medical Decision Making Imaging Data Abdominal x-ray: Radiologist's impression: [address] [id number] XRay Report Signed Patient: Sara Galan MR#: [id number] : 1950 Acct:[id number] Age/Sex: 72 / F ADM Date: 03/07/22 Loc: .ED Attending Dr: Ordering Physician: Juice Bates MD Date of Service: 03/07/22 Procedure(s): XR KUB Accession Number(s): [id number] cc: Juice Bates MD~ EXAMINATION: XR ABDOMEN KUB CLINICAL INDICATION: G-tube replacement with Gastrografin.? COMPARISON: Chest radiograph 12/08/2021.? TECHNIQUE: AP view of the abdomen. FINDINGS: The tip and balloon of the G-tube are visualized projecting over the mid upper abdomen. Contrast opacifies the stomach, duodenum and proximal jejunum. Nonobstructive bowel gas pattern. Large stool content in the rectum. XR/XR KUB IMPRESSION: Appropriate positioning of gastrostomy tube with intraluminal contrast opacification of the stomach and proximal small bowel. ? Dictated By: Jaclyn Jackson Signed By: <Electronically signed by Jaclyn? Renetta in OV> 03/07/22 1616 DD/ 1508 TD/TT:? Director Pediatric: Discharge Plan Discharge Clinical Impression: Gastrostomy tube dysfunction Patient Disposition: Xfer [facility] Instructions: How to Use and Care for Your PEG Tube (ED) Additional Instructions: 20 Slovenian tube was placed and is functioning okay to use Prescriptions: No Action atorvastatin 80 mg tablet 1 tab PO DAILY oxybutynin chloride 15 mg tablet extended release 24 hr 1 tab PO DAILY donepezil 10 mg tablet 1 tab PO DAILY omeprazole 40 mg capsule,delayed release(DR/EC) 1 cap PO BID famotidine 20 mg tablet 1 tab PO BID duloxetine 30 mg capsule,delayed release(DR/EC) 1 cap PO DAILY ondansetron 4 mg tablet,disintegrating 4 mg PO Q6H PRN (Reason: nausea and vomiting) Qty: 10 0RF
[2022-03-07 15:38] VITALS: BP 140/88; PULSE 62; RESP 22; TEMP 36.5; O2SAT 97
--- NOTE | 2022-03-07 16:45 | PC.NURSE ---
RN to RN report given to Tanya at [facility] in [place]
--- NOTE | 2022-03-07 17:22 | PC.NURSE ---
placed a call to [facility] to get an eta on transportation back to [facility]. Got an ETA of 6-6:30
[2022-03-07 19:23] VITALS: BP 134/67; PULSE 70; RESP 16; O2SAT 98
--- NOTE | 2022-03-07 19:43 | PC.NURSE ---
CALL OUT TO [facility] ASKED FOR ETA ON TRANSPORT TO [facility], [facility] IS TRYING TO PASS ON TRANSPORT TO ANOTHER AMBULANCE COMPANY WILL CALL IN AN HOUR FOR UPDATE
== END 2022-03-07 20:51 | disposition skilled nursing facility (03) ==
PROVIDERS: Emergency Provider Internal Medicine
DX: K94.23 Gastrostomy malfunction (principal); Z87.891 Personal history of nicotine dependence
CPT/HCPCS: 43762; 74018; 99284